=== PATIENT | male | born 1980 | race Caucasian/White ===

== ENCOUNTER 2018-06-07 16:57 | Emergency (ER) | payer OTHER ==
[~2018-06-07] VITALS: Ht 174 cm; Wt 100.7 kg
[2018-06-07 17:10] VITALS: BP 145/94
--- NOTE | 2018-06-07 17:20 | PHYS DOC ---
Adult General Chief Complaint Chief Complaint: SORE THROAT HPI HPI 38-year-old male presents with sore throat for the last 1 week. The patient states he feels that it's been getting worse. He has had a productive cough with greenish sputum. He thought he might have been running a fever yesterday but did not measure one. The patient does not have a smoking history. He denies chest pain or shortness of breath. Review of Systems Review of Systems Constitutional: Denies fever or chills [] Eyes: Denies change in visual acuity, redness, or eye pain [] HENT: sore throat [] Respiratory: Cough without shortness of breath [] Cardiovascular: No additional information not addressed in HPI [] GI: Denies abdominal pain, nausea, vomiting, bloody stools or diarrhea [] : Denies dysuria or hematuria [] Musculoskeletal: Denies back pain or joint pain [] Integument: Denies rash or skin lesions [] Neurologic: Denies headache, focal weakness or sensory changes [] Endocrine: Denies polyuria or polydipsia [] All other systems were reviewed and found to be within normal limits, except as documented in this note. Physical Exam Physical Exam Constitutional: Well developed, well nourished, no acute distress, non-toxic appearance. [] HENT: Normocephalic, atraumatic, bilateral external ears normal, oropharynx erythematous without exudates, nose normal. [] Eyes: PERRLA, EOMI, conjunctiva normal, no discharge. [] Neck: Normal range of motion, no tenderness, supple, no stridor. [] Cardiovascular:Heart rate regular rhythm, no murmur [] Lungs & Thorax: Bilateral breath sounds clear to auscultation [] Abdomen: Bowel sounds normal, soft, no tenderness, no masses, no pulsatile masses. [] Skin: Warm, dry, no erythema, no rash. [] Back: No tenderness, no CVA tenderness. [] Extremities: No tenderness, no cyanosis, no clubbing, ROM intact, no edema. [] Neurologic: Alert and oriented X 3, normal motor function, normal sensory function, no focal deficits noted. [] Psychologic: Affect normal, judgement normal, mood normal. [] EKG EKG [] Radiology/Procedures Radiology/Procedures [] Impressions: Two-view chest dated 06/07/2018. No comparison available. Clinical data indication: Productive cough and sore throat. FINDINGS: PA and lateral views obtained. Heart and mediastinal contours within normal limits. Lungs are clear without focal consolidation. Vascular interstitium within normal limits. No pleural effusion or pneumothorax. IMPRESSION: No acute radiographic abnormality. Electronically signed by: Marianna Magallon MD (06/07/2018 5:48 PM) [facility] DICTATED AND SIGNED BY: MARIANNA MAGALLON MD DATE: 06/07/18 1748 CC: ELMO GROVER DO; PRAVEEN MESA PA-C Course & Med Decision Making Course & Med Decision Making Pertinent Labs and Imaging studies reviewed. (See chart for details) The patient's rapid strep is negative. His chest x-ray is unremarkable. I believe the patient just has a viral URI with cough. I have advised supportive care. He is stable for discharge at this time. [] Dragon Disclaimer Dragon Disclaimer This electronic medical record was generated, in whole or in part, using a voice recognition dictation system. Departure Departure: Impression: Primary Impression: Viral URI with cough Disposition: 01 HOME, SELF-CARE Condition: STABLE Referrals: PRAVEEN MESA PA-C (PCP) Patient Instructions: Upper Respiratory Infection, Adult, [id number] ELMO GROVER DO Jun 07, 2018 17:20
--- NOTE | 2018-06-07 17:51 | RAD ---
Two-view chest dated 06/07/2018. No comparison available. Clinical data indication: Productive cough and sore throat. FINDINGS: PA and lateral views obtained. Heart and mediastinal contours within normal limits. Lungs are clear without focal consolidation. Vascular interstitium within normal limits. No pleural effusion or pneumothorax. IMPRESSION: No acute radiographic abnormality. Electronically signed by: Donaldo Magallon MD (06/07/2018 5:48 PM) [facility]
[2018-06-07] MEDS ORDERED: LIDOCAINE 2% VISCOUS 15 ML SOLUTION. SWSW ONE (18:15)
== END 2018-06-07 18:00 | disposition home or self-care (01) ==
LOC: ER 16:57
DX: J06.9 Acute upper respiratory infection, unspecified (principal); B97.89 Other viral agents as the cause of diseases classified elsewhere
CPT/HCPCS: 71046; 87070; 87880; 99284